=== PATIENT | male | born 1955 | race Caucasian/White ===

== ENCOUNTER 2022-01-10 15:36 | Outpatient (CLI) | payer MEDICARE | END 2022-01-10 15:37 | disposition home or self-care (01) | LOC: CSHCT 15:36 | PROVIDERS: ATTEND Urology | DX: Q63.2 Ectopic kidney (principal); N28.1 Cyst of kidney, acquired; N20.2 Calculus of kidney with calculus of ureter | CPT/HCPCS: 74176 ==